=== PATIENT | female | born 1990 | race Caucasian/White ===

== ENCOUNTER 2018-06-02 06:00 | Inpatient (IN) | payer OTHER ==
[2018-06-02] MEDS ORDERED: LR 1,000 ML IV PRN (06:56)
[2018-06-02] MEDS ORDERED: LR 500 ML IV PRN (06:56)
[2018-06-02] MEDS ORDERED: LIDOCAINE 1% 300 MG/30 ML SDV SC PRN (06:56)
[2018-06-02] MEDS ORDERED: OLIVE OIL 118 ML BTL MISC PRN (06:56)
[2018-06-02] MEDS ORDERED: MISOPROSTOL 200 MCG TAB PR PRN (06:56)
[2018-06-02] MEDS ORDERED: EPSOM SALT 454 GM TP PRN (06:56)
[2018-06-02] MEDS ORDERED: OXYTOCIN/RINGERS LACTATE 500 ML IV SCH (06:56)
[2018-06-02] MEDS ORDERED: IBUPROFEN 600 MG TAB PO PRN (06:56)
[2018-06-02] MEDS ORDERED: OXYTOCIN/RINGERS LACTATE 1,000 ML IV PRN (06:56)
[2018-06-02 07:21] LABS: PLATELET COUNT 191 10^3/uL (150-400)
--- NOTE | 2018-06-02 10:01 | GHP ---
DATE OF ADMISSION: 06/02/2018 ADMISSION DIAGNOSIS: Intrauterine at 40 and 5/7 weeks gestation. INDICATIONS: The patient is a 27-year-old, 1, para 0, who is at 40 and 5/7 weeks gestation. Her estimated date of confinement is 05/28/2018, consistent with a 9-week ultrasound and last menstr ual period of 08/21/2017. Patient initiated care at [facility] at 9 weeks gestati on. Her has been overall uncomplicated. Patient was examined last week in the office, and was 3 cm dilated. She was examined on Thursday, and was found to be 5 cm dilated. She presents today for elective induction of labor for postdates. PAST MEDICAL HISTORY: History of cervical dysplasia. MEDICATIONS: vitamins with DHEA. SURGICAL HISTORY: A LEEP excision. ALLERGIES: No known drug allergies. SOCIAL HISTORY: Patient is . She was a smoker, a half pack per day x9 years. She quit with positive test. She denies alcohol or drug use. FAMILY MEDICAL HISTORY: Noncontributory. 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 Periods every 35 days, lasting 5-6 days. She is a 1, para 0. She does have a history of cervical dysplasia. She had a LEEP excision in 2013. Repeat Pap sme ars have been negative. She does have a history of HPV. Denies any history of any other sexually tr ansmitted diseases. REVIEW OF SYSTEMS: 10-point review of systems is negative. Positive movement. No loss of flu id. No vaginal bleeding. She denies any headache or changes in vision. PHYSICAL EXAMINATION: VITAL SIGNS: Stable. GENERAL APPEARANCE: Alert and oriented x3. PSYCH: Ap propriate affect. MUSCULOSKELETAL: Grossly intact. NEURO: Grossly intact. HEART: Rate is regula r. LUNGS: Clear to auscultation bilaterally. ABDOMEN: Gravid, nondistended, nontender. EXTREMITI ES: Reveal no calf tenderness or edema. PELVIC: She was 5 cm dilated, 80% effaced, and -2 station, and heart tracing is category 1. is in the vertex presentation. LABS: Blood type O positive. Antibody screen negative. Rubella immune. GBS negative. HB sAg negative. HIV negative. Her 50 g glucose was 111. ASSESSMENT AND PLAN: A 27-year-old, 1, para 0, who is 40 and 5/7 weeks gestation, who presen ts for induction of labor. She has been started on Pitocin, and is considering an epidural once acti ve. /[id number]/MODL
--- NOTE | 2018-06-02 10:59 | OBPROG ---
Labor Progress Note Assessment/Plan: Assessment: Plan: Subjective/Intrapartum Course: 06/02/18 10:55 patient is doing well. pitocin is at 8 mu. having mild cramping. discussed options. sve unchanged. AROM. large amount of clear fluid. status is reassuring. will let us know if wants anything for pain management. tearful after arom. per patient is "just emotional". Objective: 06/02/18 06:56 Patient ABO/Rh O POSITIVE 06/02/18 06:56 - SVE Dilation (cm): 5 Effacement (%): 75 Station: -1 Membranes: AROM Amniotic Fluid Color: Clear - FHR Assessment Olivier FHR Pattern Variability: Moderate FHR Category: 1 - Procedures Non-surgical Procedures: Amniotomy - AP Antepartum Course: 06/02/18 10:57 initiated care in first trimester at [facility]. dated by lmp equa to 9 week ultrasound. quit smoking with positive test. uncomplicated . was 3 cm last week in the office. was 5 cm on thursday. presents for induction of labor. Oxytocin Orders Assessment - Pre-Induction/Augmentation Assessment Gestational Age: 40 week(s) and 5 day(s) ICD10 Worksheet Patient Problems: Problems Problem Status Onset Post-dates Acute (spontaneous vaginal delivery) Acute
--- NOTE | 2018-06-02 11:14 | OBPROG ---
Labor Progress Note Assessment/Plan: Assessment: Plan: Subjective/Intrapartum Course: 06/02/18 10:55 patient is doing well. pitocin is at 8 mu. having mild cramping. discussed options. sve unchanged. AROM. large amount of clear fluid. status is reassuring. will let us know if wants anything for pain management. tearful after arom. per patient is "just emotional". 06/02/18 11:12 patients contractions have significantly increased in intensity since AROM. considering epidural. anesthesia notified. Objective: 06/02/18 06:56 Patient ABO/Rh O POSITIVE 06/02/18 06:56 - SVE Membranes: AROM Amniotic Fluid Color: Clear - Contraction Pattern Assessment Current Contraction Pattern: Regular - Procedures Non-surgical Procedures: Amniotomy - AP Antepartum Course: 06/02/18 10:57 initiated care in first trimester at [facility]. dated by lmp equa to 9 week ultrasound. quit smoking with positive test. uncomplicated . was 3 cm last week in the office. was 5 cm on thursday. presents for induction of labor. Oxytocin Orders Assessment - Pre-Induction/Augmentation Assessment Gestational Age: 40 week(s) and 5 day(s) ICD10 Worksheet Patient Problems: Problems Problem Status Onset Post-dates Acute
[2018-06-02] MEDS ORDERED: BUPIVACAINE 0.25% 10 ML SDV ONE (11:21)
[2018-06-02] MEDS ORDERED: fentaNYL 2MCG/ML/BUP 0.1% RTU 100 ML BAG EP ONE (11:21)
[2018-06-02] MEDS ORDERED: PHENYLEPHRINE HCL 100 MCG/ML SYR ONE (11:22)
[2018-06-02] MEDS ORDERED: METOCLOPRAMIDE 10 MG/2 ML VIAL IVP PRN (12:19)
[2018-06-02] MEDS ORDERED: ONDANSETRON 4 MG/2 ML VIAL IVP PRN (12:19)
[2018-06-02] MEDS ORDERED: NALOXONE HCL 0.4 MG/ML INJ IVP PRN (12:19)
[2018-06-02] MEDS ORDERED: PHENYLEPHRINE HCL 100 MCG/ML SYR IVP PRN (12:19)
[2018-06-02] MEDS ORDERED: fentaNYL 2MCG/ML/BUP 0.1% RTU 100 ML EP SCH (12:30)
[2018-06-02] MEDS ORDERED: LIDOCAINE 1% 300 MG/30 ML SDV ONE (13:18)
[2018-06-02] MEDS ORDERED: OLIVE OIL 118 ML BTL ONE (13:18)
--- NOTE | 2018-06-02 13:18 | OBPROG ---
Labor Progress Note Assessment/Plan: Assessment: Plan: Subjective/Intrapartum Course: 06/02/18 10:55 patient is doing well. pitocin is at 8 mu. having mild cramping. discussed options. sve unchanged. AROM. large amount of clear fluid. status is reassuring. will let us know if wants anything for pain management. tearful after arom. per patient is "just emotional". 06/02/18 11:12 patients contractions have significantly increased in intensity since AROM. considering epidural. anesthesia notified. 06/02/18 13:17 Patient is comfortable with epidural. pitocin is at 8 mu. completely dilated. patient surprised. occasional variable decelerations. will begin pushing,. Objective: 06/02/18 06:56 Patient ABO/Rh O POSITIVE 06/02/18 06:56 - SVE Dilation (cm): 10 Effacement (%): 100 Station: +1 Membranes: AROM Amniotic Fluid Color: Clear Dilation Complete Date: 06/02/18 Dilation Complete Time: 13:14 - Contraction Pattern Assessment Current Contraction Pattern: Regular - Procedures Non-surgical Procedures: Amniotomy - AP Antepartum Course: 06/02/18 10:57 initiated care in first trimester at [facility]. dated by lmp equa to 9 week ultrasound. quit smoking with positive test. uncomplicated . was 3 cm last week in the office. was 5 cm on thursday. presents for induction of labor. Oxytocin Orders Assessment - Pre-Induction/Augmentation Assessment Gestational Age: 40 week(s) and 5 day(s) ICD10 Worksheet Patient Problems: Problems Problem Status Onset Post-dates Acute
[2018-06-02] MEDS ORDERED: OXYTOCIN 10 UNIT/ML VIAL ONE (13:19)
[2018-06-02] MEDS ORDERED: MISOPROSTOL 200 MCG TAB ONE (13:19)
[2018-06-02] MEDS ORDERED: TERBUTALINE SULFATE 1 MG/ML VIAL ONE (13:19)
[2018-06-02] MEDS ORDERED: AMMONIA AROMATIC 1 EACH AMP IH ONE (13:19)
[2018-06-02] MEDS ORDERED: SIMETHICONE 80 MG TAB CHEW PO PRN (15:16)
[2018-06-02] MEDS ORDERED: HYDROCORTISONE 0.5% CREAM TP PRN (15:16)
--- NOTE | 2018-06-02 15:21 | OBDEL ---
Info Type: Vaginal Presentation at Delivery: Vertex L&D Analgesia/Anesthesia Type: Epidural GBS+: No Intrapartum Medications: Generic Name Dose Route Start Last Admin Trade Name Freq PRN Reason Stop Dose Admin Oxytocin/Lactated Ringer's 500 mls @ 0 mls/hr 06/02/18 06:56 06/02/18 07:40 Pitocin 30 Units/Lr (Premix) IV 11/29/18 06:55 500 mls CONT BECKIE Administration Protocol Per Protocol Discontinued Medications Generic Name Dose Route Start Last Admin Trade Name Freq PRN Reason Stop Dose Admin Lactated Ringer's 500 mls @ 500 mls/hr 06/02/18 06:56 06/02/18 07:41 Lr IV 06/02/18 14:53 500 mls PRN PRN Administration Maternal Hypotension Ibuprofen 600 mg 06/02/18 06:56 06/02/18 14:39 Motrin PO 600 mg ONCE PRN Administration post , pain - Hospital Course Intrapartum: 06/02/18 10:55 patient is doing well. pitocin is at 8 mu. having mild cramping. discussed options. sve unchanged. AROM. large amount of clear fluid. status is reassuring. will let us know if wants anything for pain management. tearful after arom. per patient is "just emotional". 06/02/18 11:12 patients contractions have significantly increased in intensity since AROM. considering epidural. anesthesia notified. 06/02/18 13:17 Patient is comfortable with epidural. pitocin is at 8 mu. completely dilated. patient surprised. occasional variable decelerations. will begin pushing,. Indications for Delivery: Elective Vaginal Delivery - Delivery Provider Delivery Physician/CNM: Taryn Aiken - Labor and Delivery Onset of Contractions Date: 06/02/18 Onset of Contractions Time: 08:30 Onset of Contractions Type: Induced Rupture of Membranes Date: 06/02/18 Rupture of Membranes Time: 10:50 Rupture of Membranes Type: Artificial Amniotic Fluid Color: Clear Dilation Complete Date: 06/02/18 Dilation Complete Time: 13:14 Placenta Delivery Date: 06/02/18 Placenta Delivery Time: 13:51 Total Hours of Labor: 5 Non-surgical Procedures: Amniotomy Laceration: 2nd Degree, Other (Specify) (right labial) Repair: 3-0 Vaginal Sponge Count Correct: Yes Vaginal Needle Count Correct: Yes Vaginal Sweep Performed: Yes EBL: 500 Delivery Comment: 1000 cytotec pr given for atony after delivery. - Medications Labor Augmentation/Induction Methods Used: Pitocin Labor Augmentation/Induction Indication: Elective [place] Data ANGÉLICA: 05/28/18 Gestational Age: 40 week(s) and 5 day(s) Olivier Delivery Date: 06/02/18 Delivery Time: 13:49 Sex of Infant: Female Score (1 Min): 8 Score (5 Min): 9 ICD10 Worksheet Patient Problems: Problems Problem Status Onset Post-dates Acute
[2018-06-02] MEDS: IBUPROFEN 600 MG TAB PO PRN (20:26)
[2018-06-03] MEDS: ACETAMINOPHEN 325 MG TAB PO PRN ×4 (02:31→20:29)
[2018-06-03] MEDS: IBUPROFEN 600 MG TAB PO PRN ×4 (02:31→20:29)
[2018-06-03] MEDS: DOCUSATE SODIUM 100 MG CAP PO PRN ×3 (02:31→20:29)
[2018-06-03] MEDS: oxyCODONE IR 5 MG TAB PO PRN ×2 (05:59→13:11)
--- NOTE | 2018-06-03 11:15 | OBPP ---
Progress Note Assessment/Plan: Assessment: PPD 1 s/p Plan: doing well per RN, currently in shower - will see later 06/03/18 11:14 Objective: 06/02/18 06:56 Patient ABO/Rh O POSITIVE 06/02/18 06:56 Temp Pulse Resp BP Pulse Ox 36.7 C 93 18 122/75 H 98 06/03/18 08:00 06/03/18 08:00 06/03/18 08:00 06/03/18 08:00 06/03/18 08:00
--- NOTE | 2018-06-03 18:42 | OBPP ---
Progress Note Assessment/Plan: Assessment: PPD 1 s/p Plan: routine care 06/03/18 11:14 06/03/18 18:39 Subjective/ Course: 06/03/18 18:40 Pt doing well. Working on BF and has pretty good latch. Bld has lessened quite a bit. urinating fine. Bottom not too sore - has used 2 oxy since del. using ice packs and ibu/tyl Objective: 06/02/18 06:56 Patient ABO/Rh O POSITIVE 06/02/18 06:56 Temp Pulse Resp BP Pulse Ox 36.7 C 93 18 122/75 H 98 06/03/18 08:00 06/03/18 08:00 06/03/18 08:00 06/03/18 08:00 06/03/18 08:00 Uterine Position/Fundal Height: Umbilicus -2 Uterine Tone: Firm Physical Exam - Physical Exam Abdomen: non-tender, soft, other (FF at umb -2, normal lochia) Extremities: non-tender, pedal edema (mild) Skin: normal color, warm/dry Neuro/Psych: alert, normal mood/affect
[2018-06-04] MEDS: IBUPROFEN 600 MG TAB PO PRN ×2 (02:35→10:19)
[2018-06-04] MEDS: ACETAMINOPHEN 325 MG TAB PO PRN ×2 (02:35→10:18)
--- NOTE | 2018-06-04 05:57 | POSTANESTH ---
Post Anesthetic Evaluation Cardiovascular Status: Normal, Stable Respiratory Status: Normal, Stable Level of Consciousness/Mental Status: Can Participate in Eval Pain Control: Adequate, Prn Tx Ordered Nausea/Vomiting Control: Adequate, Prn Tx Ordered Complications Possibly Related to Anesthesia: None Noted
--- NOTE | 2018-06-04 05:57 | PREANESOB ---
Obstetric Pre-Anesthesia Info - General Info : 1 Para: 1 ANGÉLICA: 05/28/18 Gestational Age: 40 week(s) and 5 day(s) - Info Status: Full Term Monitors: External FHR Pattern: Reassuring - Labor Status Cervical Dilation per last OB SVE: 10 Station per last OB SVE: +1 Rupture of Membranes Date: 06/02/18 Rupture of Membranes Time: 10:50 Amniotic Fluid Color: Clear Magnesium Sulfate in Use: No Indications for Labor Analgesia: Induction of Labor Labor Epidural: Proposed Anesthesia Allergies/Adverse Reactions: Allergy/AdvReac Type Severity Reaction Status Date / Time No Allergies Allergy Verified 06/01/18 14:29 Visit Medications: Generic Name Dose Route Start Last Admin Trade Name Freq PRN Reason Stop Dose Admin Acetaminophen 650 mg 06/02/18 15:16 06/04/18 02:35 Tylenol PO 11/29/18 15:15 650 mg Q6HRS PRN Administration Pain, Mild Able to Take PO Docusate Sodium 100 mg 06/02/18 15:16 06/03/18 20:29 Colace PO 11/29/18 15:15 100 mg BID PRN Administration Constipation Hydrocortisone 1 bronson 06/02/18 15:16 Hydrocortisone 0.5% TP 11/29/18 15:15 QID PRN Hemorrhoids Oxytocin/Lactated Ringer's 500 mls @ 0 mls/hr 06/02/18 06:56 06/02/18 07:40 Pitocin 30 Units/Lr (Premix) IV 11/29/18 06:55 500 mls CONT BECKIE Administration Protocol Per Protocol Oxytocin/Lactated Ringer's 1,000 mls @ 125 mls/hr 06/02/18 06:56 Pitocin 20 Units/Lr (Premix) IV PRN PRN Post bleeding Ibuprofen 600 mg 06/02/18 15:16 06/04/18 02:35 Motrin PO 11/29/18 15:15 600 mg Q6HRS PRN Administration Pain, Mild Able to Take PO Lidocaine HCl 300 mg 06/02/18 06:56 Lidocaine Hcl 1% SC 11/29/18 06:55 ONCE PRN episiotomy Magnesium Sulfate 454 gm 06/02/18 06:56 Epsom Salt TP 11/29/18 06:55 Q1H PRN perineal discomfort Metoclopramide HCl 20 mg 06/02/18 12:19 Reglan Injection IVP 11/29/18 12:18 Q6HRS PRN Nausea/Vomiting, Can't Take PO Misoprostol 800 - 1,000 mcg 06/02/18 06:56 Cytotec OH ONCE PRN Vaginal Atony/Bleeding Naloxone HCl 0.4 mg 06/02/18 12:19 Narcan IVP 11/29/18 12:18 PRN PRN Respiratory depression [place] Oil 118 ml 06/02/18 06:56 Sweet Oil MISC 11/29/18 06:55 ONCE PRN perineal massage Oxycodone HCl 5 mg 06/02/18 15:16 06/03/18 13:11 Oxycodone Ir PO 06/12/18 15:15 5 mg Q4HRS PRN Administration Pain, Severe Able to Take PO Phenylephrine HCl 100 mcg 06/02/18 12:19 Neosynephrine IVP 11/29/18 12:18 .Q2M PRN Hypotension Simethicone 80 mg 06/02/18 15:16 Mylicon PO 11/29/18 15:15 ACHS PRN Gas Discontinued Medications Generic Name Dose Route Start Last Admin Trade Name Freq PRN Reason Stop Dose Admin Ammonia (Aromatic Spirit) Confirm 06/02/18 13:19 Ammonia Aromatic Administered 06/02/18 13:20 Dose 1 each IH .STK-MED ONE Bupivacaine HCl Confirm 06/02/18 11:21 Sensorcaine 0.25% Sdv Administered 06/02/18 11:22 Dose 20 ml .ROUTE .STK-MED ONE Fentanyl/Bupivacaine HCl Confirm 06/02/18 11:21 Fentanyl/Bupivacaine/Ns 2 Mcg/Ml 0.1% (Premix Administered 06/02/18 11:22 Dose 100 ml EP .STK-MED ONE Lactated Ringer's 500 mls @ 500 mls/hr 06/02/18 06:56 06/02/18 07:41 Lr IV 06/02/18 14:53 500 mls PRN PRN Administration Maternal Hypotension Lactated Ringer's 1,000 mls @ 0 mls/hr 06/02/18 06:56 Lr IV 06/03/18 06:55 PRN PRN SEE PROTOCOL CONDITIONS Protocol Per Protocol Fentanyl/Bupivacaine HCl 100 mls @ 0 mls/hr 06/02/18 12:30 Fentanyl/Bupivacaine/Ns 2 Mcg/Ml 0.1% (Premix EP 06/12/18 12:29 CONT BECKIE Protocol As Directed Ibuprofen 600 mg 06/02/18 06:56 06/02/18 14:39 Motrin PO 600 mg ONCE PRN Administration post , pain Lidocaine HCl Confirm 06/02/18 13:18 Lidocaine Hcl 1% Administered 06/02/18 13:19 Dose 300 mg .ROUTE .STK-MED ONE Misoprostol Confirm 06/02/18 13:19 Cytotec Administered 06/02/18 13:20 Dose 1,000 mcg .ROUTE .STK-MED ONE [place] Oil Confirm 06/02/18 13:18 Sweet Oil Administered 06/02/18 13:19 Dose 118 ml .ROUTE .STK-MED ONE Ondansetron HCl 4 mg 06/02/18 12:19 Zofran IVP 06/03/18 12:18 Q4HRS PRN Nausea/Vomiting, Can't Take PO Oxytocin Confirm 06/02/18 13:19 Pitocin Administered 06/02/18 13:20 Dose 40 unit .ROUTE .STK-MED ONE Phenylephrine HCl Confirm 06/02/18 11:22 Neosynephrine Administered 06/02/18 11:23 Dose 1,000 mcg .ROUTE .STK-MED ONE Terbutaline Sulfate Confirm 06/02/18 13:19 Brethine Administered 06/02/18 13:20 Dose 1 mg .ROUTE .STK-MED ONE - Vital Signs Latest Vital Signs (Nursing): Temp Pulse Resp BP Pulse Ox 36.2 C 90 16 124/83 H 98 06/03/18 20:47 06/03/18 20:47 06/03/18 20:47 06/03/18 20:47 06/03/18 20:47 Height/Weight (Nursing): Height 172.72 cm Weight 93.44 kg Labs: 06/02/18 06:56 Patient ABO/Rh O POSITIVE 06/02/18 06:56
[2018-06-04 08:57] VITALS: BP 105/72
--- NOTE | 2018-06-04 13:05 | OBPP ---
Progress Note Assessment/Plan: Assessment: Plan: Subjective/ Course: 06/03/18 18:40 Pt doing well. Working on BF and has pretty good latch. Bld has lessened quite a bit. urinating fine. Bottom not too sore - has used 2 oxy since del. using ice packs and ibu/tyl Objective: 06/02/18 06:56 Patient ABO/Rh O POSITIVE 06/02/18 06:56 Temp Pulse Resp BP Pulse Ox 37.2 C 78 18 105/72 99 06/04/18 08:00 06/04/18 08:00 06/04/18 08:00 06/04/18 08:00 06/04/18 08:00
--- NOTE | 2018-06-04 13:31 | OBGCSDC ---
General Delivery Information - General Info : 1 Para: 1 Abortions: 0 Type: Vaginal L&D Analgesia/Anesthesia Type: Epidural Admission Date: 06/02/18 Labs: Patient ABO/Rh O POSITIVE 06/02/18 06:56 Hct 40.3 % (38.0-47.0) 06/02/18 06:56 - Hospital Course Antepartum: 06/02/18 10:57 initiated care in first trimester at [facility]. dated by lmp equa to 9 week ultrasound. quit smoking with positive test. uncomplicated . was 3 cm last week in the office. was 5 cm on thursday. presents for induction of labor. Intrapartum: 06/02/18 10:55 patient is doing well. pitocin is at 8 mu. having mild cramping. discussed options. sve unchanged. AROM. large amount of clear fluid. status is reassuring. will let us know if wants anything for pain management. tearful after arom. per patient is "just emotional". 06/02/18 11:12 patients contractions have significantly increased in intensity since AROM. considering epidural. anesthesia notified. 06/02/18 13:17 Patient is comfortable with epidural. pitocin is at 8 mu. completely dilated. patient surprised. occasional variable decelerations. will begin pushing,. : 06/03/18 18:40 Pt doing well. Working on BF and has pretty good latch. Bld has lessened quite a bit. urinating fine. Bottom not too sore - has used 2 oxy since del. using ice packs and ibu/tyl Vaginal - Delivery Provider Delivery Physician/CNM: Taryn Aiken - Diagnosis Labor: Induced Rupture of Membranes Type: Artificial Amniotic Fluid Color: Clear Laceration: 2nd Degree, Other (Specify) (right labial) Repair: 3-0 - Procedures Non-surgical Procedures: Amniotomy - Delivery Non-surgical Procedures: Amniotomy EBL: 500 Data ANGÉLICA: 05/28/18 Gestational Age: 41 week(s) and 0 day(s) Olivier Delivery Date: 06/02/18 Delivery Time: 13:59 Sex of : Female [place] Weight (gm): 3926 kg Score (1 Min): 8 Score (5 Min): 9
== END 2018-06-04 14:39 | disposition home or self-care (01) | DRG 807 ==
LOC: FLD 06:12 → FOB 17:00
PROVIDERS: ADMIT Obstetrics & Gynecology; ATTEND Obstetrics & Gynecology
PROC: 10E0XZZ Delivery of Products of Conception, External Approach (ICD-10-PCS; principal; 2018-06-02)
PROC: 3E033VJ Introduction of Other Hormone into Peripheral Vein, Percutaneous Approach (ICD-10-PCS; principal; 2018-06-02)
PROC: 10907ZC Drainage of Amniotic Fluid, Therapeutic from Products of Conception, Via Natural or Artificial Opening (ICD-10-PCS; principal; 2018-06-02)
PROC: 0KQM0ZZ Repair Perineum Muscle, Open Approach (ICD-10-PCS; principal; 2018-06-02)
DX: O48.0 Post-term pregnancy (principal); O70.1 Second degree perineal laceration during delivery; Z3A.40 40 weeks gestation of pregnancy; Z37.0 Single live birth; Z87.891 Personal history of nicotine dependence
CPT/HCPCS: J2370; J2590; J3105